=== PATIENT | male | born 1965 | race Two or more races ===

== ENCOUNTER 2019-10-20 11:38 | Emergency (ER) | payer BC ==
[~2019-10-20] VITALS: Ht 175.3 cm; Wt 115.9 kg
--- NOTE | 2019-10-20 12:08 | NUR ---
task RN note: pt presents to ED with atraumatic left lower back pain, states has been present x 3 weeks. denies exacerbating factors. pt denies fevers, denies dysuria. pt denies any other symptoms. pt a&o, resps even and unlabored. EKG taken in triage. pt on all monitors, pt nsr on monitor and storage bin tender, no ectopy. bilateral bp equivocal. call light in reach. pt examined by ELIZABETH Oneal, awaiting orders.
[2019-10-20] MEDS ORDERED: MORPHINE SULFATE 4 MG/ML, 1ML ONE (12:24)
[2019-10-20] MEDS ORDERED: ONDANSETRON 2MG/ML, 2ML ONE (12:24)
[2019-10-20] MEDS ORDERED: ONDANSETRON 2MG/ML, 2ML IVPush ONE (12:30)
[2019-10-20] MEDS ORDERED: SODIUM CHLORIDE FLUSH 10ML SYR IVF ONE (12:30)
[2019-10-20] MEDS ORDERED: MORPHINE SULFATE 4 MG/ML, 1ML IVPush PRN (12:30)
[2019-10-20 12:33] LABS: BASOPHILS # (AUTO) 0.02 x10^3/uL (0-0.1); BASOPHILS % (AUTO) 0 % (0-1); EOSINOPHILS # (AUTO) 0.12 x10^3/uL (0-0.4); EOSINOPHILS % (AUTO) 2 % (1-7); LYMPHOCYTES # (AUTO) 1.64 x10^3/uL (1-3.4); LYMPHOCYTES % (AUTO) 28 % (22-44); MD NO; MEAN CORPUSCULAR HEMOGLOBIN 33.9 pg (27.5-34.5); MEAN CORPUSCULAR HGB CONC 34.1 g/dL (33.2-36.2); MEAN CORPUSCULAR VOLUME 99.5 fL (81-97); MEAN PLATELET VOLUME 9.8 fL (7.4-10.4); MONOCYTES # (AUTO) 0.53 x10^3/uL (0.2-0.8); MONOCYTES % (AUTO) 9 % (2-9); NEUTROPHILS # (AUTO) 3.61 x10^3/uL (1.8-6.8); NEUTROPHILS % (AUTO) 61 % (42-75); PLATELET COUNT 163 x10^3/uL (130-400); RED BLOOD COUNT 5.23 x10^6/uL (4.38-5.82); RED CELL DISTRIBUTION WIDTH 13.1 % (9.4-14.8)
--- NOTE | 2019-10-20 12:35 | NUR ---
PIV INITIATED, PT MEDICATED PER MAR.
[2019-10-20 12:46] LABS: ALANINE AMINOTRANSFERASE 59 U/L (12-78); ALBUMIN 3.9 g/dL (3.4-5.0); ANION GAP 5 mmol/L (5-15); CHLORIDE 106 mmol/L (98-107); CREATININE 0.89 mg/dL (0.7-1.3)
[2019-10-20 12:48] LABS: ALKALINE PHOSPHATASE 110 U/L (45-117); BILIRUBIN,TOTAL 1.3 mg/dL (0.2-1.0)
[2019-10-20] MEDS ORDERED: AMLO10TA8 PO (13:18)
[2019-10-20] MEDS ORDERED: LOSA1TAB25 PO (13:18)
[2019-10-20 13:28] LABS: MICROSCOPIC AUTO
--- NOTE | 2019-10-20 14:16 | NUR ---
PT RESTING ON GURNEY AT THIS TIME, BP LOWERED SLIGHTLY, NAD NOTED
[2019-10-20 15:33] VITALS: BP 167/89
--- NOTE | 2019-10-20 15:34 | NUR ---
PEDIATRIC IMMUNOLOGIST: PAIN 11/25 Patient/Caregiver given discharge instructions and they have confirmed that they understand the instructions. Patient ambulatory with steady gait.
== END 2019-10-20 15:35 | disposition home or self-care (01) ==
LOC: ED 12:44
DX: M54.5 Low back pain (principal); R10.9 Unspecified abdominal pain; R94.31 Abnormal electrocardiogram [ECG] [EKG]
CPT/HCPCS: 36415; 80053; 81001; 85025; 93005; 96374; 96375; 99285; J2270; J2405